=== PATIENT | female | born 2005 | race Caucasian/White ===

== ENCOUNTER 2024-10-26 19:27 | Emergency (ER) | payer BC, SELFPAY ==
--- NOTE | 2024-10-26 19:28 | ED.NAVMDI ---
HPI - Nausea/Vomiting/Diarrhea General Chief complaint: Nausea/Vomiting/Diarrhea Stated complaint: n/v/d Time Seen by Provider: 10/26/24 19:27 Source: patient and family Mode of arrival: ambulatory Limitations: no limitations History of Present Illness HPI Narrative: patient is a 19-year-old female with acute nausea vomiting and diarrhea for the day. He works at a [employer] and they have many clients that have the same illness. She had tinged blood in her vomit once. No hilary hematemesis or hemoptysis. No bleeding rectally. No melena. no prior abdominal surgery. MD elicited complaint: nausea, vomiting, diarrhea and abdominal pain ( Diffuse) Pertinent past history: other ( None) Onset (ago): day(s) ( 1) Description of vomiting: food contents, watery, blood-streaked and resolved ( given Zofran in the ER) Description of diarrhea: watery and lose Associated nausea: Yes Associated abdominal pain: Yes Location of pain: diffuse Radiation: diffuse Pain consistency: intermittent Severity: mild Pain scale (0-10): 1 Quality: cramping Exacerbating factors: eating and vomiting Relieving factors: none Context: sick contacts Associated symptoms: loss of appetite, malaise and nausea/vomiting Treatment prior to arrival: other ( none) Related Data Home Medications ?Medication ?Instructions ?Recorded ?Confirmed ?Last Taken ?Type fluoxetine 10 mg capsule 10 mg PO DAILY 01/18/22 Unknown History levonorgestrel-ethinyl estradiol 1 tablet PO DAILY 01/18/22 Unknown History 0.1 mg-20 mcg tablet (Vienva) Allergies Allergy/AdvReac Type Severity Reaction Status Date / Time escitalopram (From Lexapro) Allergy Severe Rash Verified 01/18/22 14:08 Review of Systems Review of Systems: All systems reviewed & are unremarkable except as noted in HPI and below Constitutional: Constitutional: Reports no additional constitutional complaints Eyes: Eyes: Reports no additional eye complaints ENT: Reports system reviewed and no additional complaints, except as documented Cardiovascular: Cardiovascular: Reports no additional cardiovascular complaints Respiratory: Respiratory: Reports no additional respiratory complaints Gastrointestinal: Gastrointestinal: Reports no additional gastrointestinal complaints Genitourinary: Genitourinary: Reports no additional female genitourinary complaints Musculoskeletal: Musculoskeletal: Reports no additional musculoskeletal complaints Integumentary/Breasts: Skin/Breast: Reports system reviewed and no additional complaints, except as docu Neurologic: Reports system reviewed and no additional complaints, except as documented Psychiatric: Psychiatric: Reports no additional psychiatric complaints Endocrine: Endocrine: Reports no additional endocrine complaints Hematologic/Lymphatic: Hematologic/Lymphatic: Reports no additional hematologic/lymphatic complaints Allergic/Immunologic: Allergic/Immunologic: Reports no additional allergic/immunologic complaints PMFSH Social History Social History Smoking status: Never smoker Exam Const: General: healthy appearing Nutritional Appearance: well nourished Orientation/consciousness: patient oriented x3 Limitations: no limitations HENMT: Head: normal to inspection Ears: external ears normal Face/Nose/Sinus: Normal external nose present Eyes: Conjunctivae: conjunctivae normal Cornea: corneas normal Pupils: Equal, round and reactive pupils present Neck: Neck: normal visual inspection Chest: Chest palpation & inspection: normal inspection of the chest Resp: Effort & Inspection: normal respiratory effort and not labored Auscultation: clear to auscultation bilaterally and no crackles Cardio: Rate: regular rate Rhythm: regular rhythm Heart sounds: no murmurs GI: Inspection: non-distended GI Palp: Yes Soft to palpation, Yes Tenderness to palpation present (GI) ( diffuse), No Guarding due to palpation present (GI), No Rigid due to palpation, No Hernia present, No Palpable mass present and No Rebound tenderness present Auscultation: normal bowel sounds : General: Yes bladder normal to palpation Back/Spine/Pelvis: Back: no CVA tenderness Skin: General skin exam: normal color Rashes: no rashes Wounds: no wounds Neuro: General: patient oriented x3 Cranial nerves: Yes Nystagmus not present Speech: normal speech Extrem: General: normal to inspection Psych: Mental Status: mental status grossly normal Affect: normal affect Attitude: cooperative Course Vital Signs Vital signs: Vital Signs Temperature 36.1 C L 10/26/24 19:30 Pulse Rate 85 10/26/24 19:30 Respiratory Rate 18 10/26/24 19:30 Blood Pressure 139/83 10/26/24 19:30 Pulse Oximetry 98 10/26/24 19:30 Oxygen Delivery Room Air 10/26/24 19:30 Temperature 36.6 C 10/26/24 21:30 Pulse Rate 72 10/26/24 21:30 Respiratory Rate 18 10/26/24 21:30 Blood Pressure 116/73 10/26/24 21:30 Pulse Oximetry 97 10/26/24 21:30 Oxygen Delivery Room Air 10/26/24 21:30 MDM - Nausea/Vomiting/Diarrhea MDM Narrative Medical decision making narrative: patient is a 19-year-old female with nausea vomiting and diarrhea such as gastroenteritis. We will monitor for 24 hours at home and see how the patient does or she should come back to the ER for worse symptoms. COVID nasal swab panel done. Patient may use Imodium as of tomorrow. Lab Data Attestation: I reviewed the patient's lab results. 10/26/24 20:10 Labs: Lab Results 10/26/24 10/26/24 10/26/24 Range/Units 19:28 19:38 20:10 Creatinine Cancelled Estim Creat Clear Calc Cancelled Estimated GFR Cancelled Urine Color Light yellow (Yellow) Urine Appearance Clear (Clear) Urine pH 6.0 (5.0-8.0) Ur Specific [place] <= 1.005 L (1.010-1.020) Urine Protein Negative (Negative) Urine Glucose (UA) Negative (Negative) Urine Ketones Negative (Negative) Ur Blood (Man) Trace-intact H (Negative) Urine Nitrate Negative (Negative) Urine Bilirubin Negative (Negative) Urine Urobilinogen 0.2 (0.2-1.0) mg/dL Leukocyte Esterase Rfl Negative (Negative) GEORGINA/UL Urine Test Negative Influenza A (RT-PCR) Negative (Negative) Influenza B (RT-PCR) Negative (Negative) RSV (RT-PCR) Negative (Negative) SARS-CoV-2 RNA (RT-PCR) Negative (Negative) Discharge Plan Discharge Clinical Impression: Gastroenteritis Patient Disposition: Home, Self-Care Condition: Stable Instructions: Gastroenteritis (ED) Additional Instructions: Please follow-up with primary doctor in the next week. You may start with Imodium tomorrow as needed. Drink plenty of clear fluids. Patient Language: Danish Prescriptions: New ondansetron 4 mg tablet,disintegrating 4 mg PO Q6H PRN (Reason: nausea and vomiting) Qty: 30 0RF No Action levonorgestrel-ethinyl estrad [Vienva] 0.1-20 mg-mcg tablet 1 tablet PO DAILY fluoxetine 10 mg capsule 10 mg PO DAILY Follow-up/Referrals: Sury,Yoanna Wheeler NP [Primary Care Provider] - Stand Alone Forms: Work/School Release IP Time of Disposition: 21:23
[2024-10-26 19:30] VITALS: BP 139/83; PULSE 85; RESP 18; TEMP 36.1; O2SAT 98
--- NOTE | 2024-10-26 19:36 | PC.NURSE ---
pt ambulated to bathroom for urine specimen
[2024-10-26 19:42] LABS: Pregnancy On Board Control Positive; Urine Pregnancy Test Negative
[2024-10-26 19:43] LABS: Add Urine Microscopic? NO; Appearance Urine Clear (Clear); Bilirubin Urine Negative (Negative); Blood Urine Trace-intact (Negative); Color Urine Light Yellow (Yellow); Glucose Urine UA Negative (Negative); Ketones Urine Negative (Negative); Leukocyte Esterase Ur Negative LEU/UL (Negative); Nitrate Urine Negative (Negative); Protein Urine Negative (Negative); Specific Grav Ur <= 1.005 (1.010-1.020); Urobilinogen Urine 0.2 mg/dL (0.2-1.0)
[2024-10-26 20:07] LABS: SARS-CoV-2 RNA PCR Negative (Negative)
[2024-10-26 20:08] LABS: Influenza A QL RT-PCR Negative (Negative); Influenza B QL RT-PCR Negative (Negative); RSV RNA, RT-PCR Negative (Negative)
[2024-10-26] MEDS: ONDANSETRON HCL ODT 4 MG TABLET PO (20:13)
[2024-10-26 21:30] VITALS: BP 116/73; PULSE 72; RESP 18; TEMP 36.6; O2SAT 97
[2024-10-26] MEDS: ONDANSETRON HCL ODT 4 MG TABLET 8 MG PO (21:30)
== END 2024-10-26 21:35 | disposition home or self-care (01) ==
PROVIDERS: Emergency Provider Emergency Medicine; PCP Nurse Practitioner
DX: K52.9 Noninfective gastroenteritis and colitis, unspecified (principal); Z20.822 Contact with and (suspected) exposure to COVID-19
CPT/HCPCS: 81003; 81025; 87637; 99283; A9270

== ENCOUNTER 2025-08-06 07:13 | Emergency (ER) | payer BC, SELFPAY ==
[2025-08-06 07:22] VITALS: BP 144/97; PULSE 109; RESP 20; TEMP 36.7; O2SAT 97
[2025-08-06 07:37] LABS: BEDSIDEPREGUCG Negative (Negative)
[2025-08-06 08:44] LABS: Add Urine Microscopic? YES; Appearance Urine Clear (Clear); Glucose Urine UA Negative (Negative); Leukocyte Esterase Ur 1+ LEU/UL (Negative); Need Manual Microscopic Reviewed; Nitrate Urine Negative (Negative); Non Pathogenic Casts 0-2; Specific Grav Ur 1.023 (1.001-1.035)
--- NOTE | 2025-08-06 10:17 | ED.GENADULT ---
HPI - General Adult General Chief complaint: Urogenital-Female Stated complaint: UTI Time Seen by Provider: 08/06/25 07:23 History of Present Illness HPI narrative: Patient is a 20-year-old female who presents ER with concerns for UTI. She started having burning urination is morning. Currently being treated for bacterial vaginosis. She has been having recurrent UTIs over last 6 months. She uses the restroom after having intercourse, she uses proper hygiene techniques when cleaning herself. She has no fevers or chills or sweats. She had been having pelvic pain and had an ex lap to rule out endometriosis by her mill machinist. She has been tested for sexually transmitted infection which was negative. During her surgery she is found have urinary retention and had to have her bladder drained which she has had no other issues with urinary retention that she has been told of. Related Data Home Medications ?Medication ?Instructions ?Recorded ?Confirmed ?Last Taken ?Type fluoxetine 10 mg capsule 10 mg PO DAILY 01/18/22 Unknown History levonorgestrel-ethinyl estradiol 1 tablet PO DAILY 01/18/22 Unknown History 0.1 mg-20 mcg tablet (Vienva) Allergies Allergy/AdvReac Type Severity Reaction Status Date / Time escitalopram (From Lexapro) Allergy Severe Rash Verified 08/06/25 07:30 Review of Systems Review of Systems: All systems reviewed & are unremarkable except as noted in HPI and below Constitutional: Constitutional: Reports no additional constitutional complaints Gastrointestinal: Gastrointestinal: Reports no additional gastrointestinal complaints Genitourinary: Genitourinary: Reports no additional female genitourinary complaints PMFSH Past Medical History Medical History (Updated 08/06/25 @ 10:22 by Harjinder Becerril MD) Depression Surgical History Surgical History (Updated 08/06/25 @ 10:18 by Harjinder Becerril MD) H/O laparoscopy Social History Social History Smoking status: Never smoker Exam Narrative: GENERAL: Well-appearing, well-nourished, and in no acute distress. HEAD: Normocephalic, atraumatic. ENT: Mucous membranes moist. CHEST: Clear to auscultation. No respiratory distress. HEART: Regular rate and rhythm. Normal peripheral pulses. ABDOMEN: Soft, nontender, nondistended. NEURO: Alert and oriented x3. PSYCH: Normal mood and affect. Course Course Emergency Course: 1+ leukocyte esterase but otherwise no bacteria or white blood cells. Do not feel this is reflective of UTI at this time by urine will be sent for culture. Recommend follow-up with Urology given recurrent UTI and discomfort. Pelvic exam offered but declined. Vital Signs Vital signs: Vital Signs Temperature 98.0 F 08/06/25 07:22 Pulse Rate 109 H 08/06/25 07:22 Respiratory Rate 20 08/06/25 07:22 Blood Pressure 144/97 H 08/06/25 07:22 Pulse Oximetry 97 08/06/25 07:22 Oxygen Delivery Room Air 08/06/25 07:22 Temperature 98.0 F 08/06/25 07:22 Pulse Rate 109 H 08/06/25 07:22 Respiratory Rate 20 08/06/25 07:22 Blood Pressure 144/97 H 08/06/25 07:22 Pulse Oximetry 97 08/06/25 07:22 Oxygen Delivery Room Air 08/06/25 07:22 MDM Differential Diagnosis Differential Diagnosis: UTI, , STI, kidney stone Lab Data [facility] Lab Attestation statement: I personally reviewed the patient's lab results. Labs: Lab Results 08/06/25 08/06/25 Range/Units 07:35 08:17 Urine Color Yellow (Yellow) Urine Appearance Clear (Clear) Urine pH 6.0 (5.0-9.0) Ur Specific [place] 1.023 (1.001-1.035) Urine Protein Negative (Negative) mg/dL Urine Glucose (UA) Negative (Negative) mg/dL Urine Ketones Trace H (Negative) mg/dL Ur Blood (Man) Negative (Negative) Urine Nitrate Negative (Negative) Urine Bilirubin Negative (Negative) Urine Urobilinogen 1.0 (<2.0) mg/dL Add Ur Microanalysis Reviewed Leukocyte Esterase Rfl 1+ H (Negative) GEORGINA/UL Urine RBC 0-2 (0-2) /hpf Urine WBC 0-5 (0-3) /hpf Ur Squamous Epith Cells None seen (Few) /hpf Urine Bacteria None seen /hpf Urine Casts 0-2 POC Urine HCG, Qual Negative (Negative) Discharge Plan Discharge Clinical Impression: Dysuria Patient Disposition: Home Condition: Stable Additional Instructions: Follow-up with your primary care doctor for further treatment evaluation. Your urine was sent for culture just in case. It is also recommended he follow up with Urology for recurrent UTI and discomfort. Patient Language: Greenlandic Prescriptions: No Action ondansetron 4 mg tablet,disintegrating 4 mg PO Q6H PRN (Reason: nausea and vomiting) Qty: 30 0RF levonorgestrel-ethinyl estrad [Vienva] 0.1-20 mg-mcg tablet 1 tablet PO DAILY fluoxetine 10 mg capsule 10 mg PO DAILY Follow-up/Referrals: Liane Matthew MD [Physician, Urology] - 1 Week Sury,Yoanna Wheeler NP [Primary Care Provider, Unknown]
[2025-08-06 10:36] VITALS: BP 138/83; PULSE 86; RESP 16; O2SAT 99
== END 2025-08-06 10:36 | disposition home or self-care (01) ==
PROVIDERS: Emergency Provider Emergency Medicine; PCP Nurse Practitioner
DX: R30.0 Dysuria (principal); F32.A Depression, unspecified; Z79.899 Other long term (current) drug therapy; Z79.3 Long term (current) use of hormonal contraceptives
CPT/HCPCS: 81001; 81025; 87086; 99283